=== PATIENT | female | born 1960 | race American Indian/Alaskan Native ===

== ENCOUNTER 2021-02-19 20:11 | Observation (INO) | payer MEDICARE ==
[2021-02-19] MEDS ORDERED: MORPHINE 2 MG/1 ML INJ IV ONE (21:03)
[2021-02-19] MEDS ORDERED: ASPIRIN 81 MG TAB CHEW PO ONE (21:04)
--- NOTE | 2021-02-19 21:07 | Emergency Department Report ---
ED Chest Pain HPI - General Chief Complaint: Chest Pain Stated Complaint: CHEST PAIN Time Seen by Provider: 02/19/21 20:57 Source: patient Mode of arrival: Stretcher Limitations: No Limitations - History of Present Illness Initial Comments: 60-year-old -Romanian female presents to the emergency department via EMS from her [facility] with complaint of midsternal chest pain with radiation down to the upper abdomen that started about 4 PM this afternoon. Currently the pain is 8 out of 10 in intensity. It worsens with certain movements, but there are no known alleviating factors. It is associated with some shortness of breath and nausea without vomiting. She denies any fever, cough, lower extremity swelling. She has a past medical history of hypertension and insulin-dependent diabetes. Her primary care physician is deandra Ryder. She denies any tobacco or illicit drug use. She denies any family history of early cardiac disease or MA. Severity scale (0 -10): 8 - Related Data Allergies Allergy/AdvReac Type Severity Reaction Status Date / Time codeine Allergy Rash Verified 02/19/21 20:17 Heart Score - HEART Score History: Slightly suspicious EKG: Non-specific Age: 45-65 Risk factors: 1-2 risk factors Troponin: < normal limit HEART Score: 3 - EKG Read Time Time EKG Completed: 20:34 EKG Read Time: 20:41 ED Review of Systems ROS: Stated complaint: CHEST PAIN Other details as noted in HPI Comment: All other systems reviewed and negative Constitutional: denies: chills, fever Eyes: denies: eye pain, vision change ENT: denies: ear pain, throat pain Respiratory: shortness of breath. denies: cough Cardiovascular: chest pain. denies: palpitations, edema Gastrointestinal: abdominal pain, nausea. denies: vomiting Genitourinary: denies: dysuria, discharge Musculoskeletal: denies: back pain, arthralgia Skin: denies: rash, lesions Neurological: denies: headache, weakness ED Past Medical Hx - Past Medical History Previous Medical History?: Yes Hx Hypertension: Yes Hx Diabetes: Yes ED Physical Exam - General Limitations: No Limitations - Other Other exam information: GENERAL: The patient is well-developed well-nourished. HENT: Normocephalic. Atraumatic. Patient has moist mucous membranes. EYES: Extraocular motions are intact. NECK: Supple. Trachea is midline. CHEST/LUNGS: Clear to auscultation. No tachypnea or accessory muscle use. HEART/CARDIOVASCULAR: Regular. There is no tachycardia. There is no murmur. Chest pain is not reproducible to palpation of the chest wall. No crepitus or deformity. ABDOMEN: Abdomen is soft, nontender. Patient has normal bowel sounds. Morbidly obese habitus. SKIN: Skin is warm and dry. NEURO: The patient is awake, alert, and oriented. The patient is cooperative. The patient has no focal neurologic deficits. Normal speech. MUSCULOSKELETAL: There is no tenderness or deformity. ED Course Vital Signs 02/19/21 02/19/21 02/19/21 20:17 20:34 21:50 Temperature 98.6 F Pulse Rate 83 73 Respiratory 20 24 18 Rate Blood Pressure 137/68 Blood Pressure 151/65 [Left] O2 Sat by Pulse 96 95 98 Oximetry 02/19/21 02/19/21 02/19/21 22:16 22:30 22:46 Temperature Pulse Rate 72 68 66 Respiratory 16 22 13 Rate Blood Pressure 141/78 146/68 146/68 Blood Pressure [Left] O2 Sat by Pulse 93 95 Oximetry 02/19/21 23:16 Temperature Pulse Rate 67 Respiratory 15 Rate Blood Pressure 155/73 Blood Pressure [Left] O2 Sat by Pulse 97 Oximetry MARITZA score - Maritza Score Age > 65: (0) No Aspirin use within the Past 7 Days: (1) Yes 3 or more CAD Risk Factors: (0) No 2 or more Angina events in past 24 hrs: (1) Yes Known CAD with more than 50% Stenosis: (0) No Elevated Cardiac Markers: (0) No ST Deviation Greater than 0.5mm: (0) No MARITZA Score: 2 ED Medical Decision Making - Lab Data Result diagrams: 02/19/21 21:08 02/19/21 21:08 Lab Results 02/19/21 02/19/21 02/19/21 Range/Units 21:08 21:08 21:08 WBC 8.9 (4.5-11.0) K/mm3 RBC 3.76 (3.65-5.03) M/mm3 Hgb 10.3 (10.1-14.3) gm/dl Hct 33.3 (30.3-42.9) % MCV 88 (79-97) fl MCH 27 L (28-32) pg MCHC 31 (30-34) % RDW 15.3 H (13.2-15.2) % Plt Count 244 (140-440) K/mm3 Lymph % (Auto) 34.8 (13.4-35.0) % [place] % (Auto) 6.2 (0.0-7.3) % Eos % (Auto) 3.3 (0.0-4.3) % Baso % (Auto) 0.6 (0.0-1.8) % Lymph # (Auto) 3.1 (1.2-5.4) K/mm3 [place] # (Auto) 0.6 (0.0-0.8) K/mm3 Eos # (Auto) 0.3 (0.0-0.4) K/mm3 Baso # (Auto) 0.1 (0.0-0.1) K/mm3 Seg Neutrophils % 55.1 (40.0-70.0) % Seg Neutrophils # 4.9 (1.8-7.7) K/mm3 Sodium 142 (137-145) mmol/L Potassium 5.1 H (3.6-5.0) mmol/L Chloride 105.0 (98-107) mmol/L Carbon Dioxide 23 (22-30) mmol/L Anion Gap 19 mmol/L BUN 21 H (7-17) mg/dL Creatinine 1.0 (0.6-1.2) mg/dL Estimated GFR > 60 ml/min BUN/Creatinine Ratio 21 % Glucose 75 (65-100) mg/dL Calcium 8.8 (8.4-10.2) mg/dL Total Bilirubin 0.40 (0.1-1.2) mg/dL AST 16 (5-40) units/L ALT 10 (7-56) units/L Alkaline Phosphatase 114 (35-129) units/L Troponin T < 0.010 (0.00-0.029) ng/mL NT-Pro-B Natriuret Pep 306.7 (0-900) pg/mL Total Protein 7.1 (6.3-8.2) g/dL Albumin 3.6 L (3.9-5) g/dL Albumin/Globulin Ratio 1.0 % Lipase 10 L (13-60) units/L - EKG Data -: EKG Interpreted by Me EKG shows normal: sinus rhythm (PVCs), axis (Left axis deviation), intervals, QRS complexes (Right bundle branch block), ST-T waves Rate: normal - EKG Data When compared to previous EKG there are: previous EKG unavailable Interpretation: other (Sinus rhythm at 75 bpm, left axis deviation, PVCs, right bundle branch block) - Radiology Data Radiology results: image reviewed interpreted by me: Chest x-ray does not show any acute process. There are no pleural effusions, obvious pneumonia and there is no pneumothorax. No widened mediastinum. Abdominal x-ray shows nonspecific nonobstructive bowel gas. No free air. - Medical Decision Making This patient presents to the emergency department with a complaint of midsternal chest pain that radiates down to the epigastrium that has been going on since earlier this afternoon. Heart and lung sounds are normal to auscultation. The patient is morbidly obese. EKG does not have any morphology consistent with ST elevation myocardial infarction. She has a right bundle branch block. Abdominal and chest x-ray did not show any acute process including any free air, widened mediastinum, pneumonia or pleural effusions. The patient's labs have been mostly unremarkable thus far including CBC, metabolic panel and first negative troponin. She has a moderate heart score. Patient had some mild hypoxia of about 88% on room air while laying flat that went up into the mid 90s with 2 L oxygen via nasal cannula. She will be admitted to the hospital for further evaluation and treatment and was accepted for admission by the hospitalist, Dr. Mercedes. Critical Care Time: No Critical care attestation.: If time is entered above; I have spent that time in minutes in the direct care of this critically ill patient, excluding procedure time. ED Disposition Clinical Impression: Acute chest pain, Obesity hypoventilation syndrome Disposition: ADMITTED INPATIENT Is pt being admited?: Yes Condition: Serious Time of Disposition: 23:09
[2021-02-19 21:32] LABS: Basophils # (Auto) 0.1 K/mm3 (0.0-0.1); Basophils % (Auto) 0.6 % (0.0-1.8); Eosinophils # (Auto) 0.3 K/mm3 (0.0-0.4); Eosinophils % (Auto) 3.3 % (0.0-4.3); Hematocrit 33.3 % (30.3-42.9); Hemoglobin 10.3 gm/dl (10.1-14.3); Lymphocytes # (Auto) 3.1 K/mm3 (1.2-5.4); Lymphocytes % (Auto) 34.8 % (13.4-35.0); Mean Corpuscular HGB Conc 31 % (30-34); Mean Corpuscular Volume 88 fl (79-97); Monocytes # (Auto) 0.6 K/mm3 (0.0-0.8); Monocytes % (Auto) 6.2 % (0.0-7.3); Platelet Count 244 K/mm3 (140-440); Red Blood Count 3.76 M/mm3 (3.65-5.03); Red Cell Distribution Width 15.3 % (13.2-15.2)
[2021-02-19 22:18] LABS: Alanine Aminotransferase 10 units/L (7-56); Albumin 3.6 g/dL (3.9-5); BUN/Creatinine Ratio 21; Blood Urea Nitrogen 21 mg/dL (7-17); Calcium 8.8 mg/dL (8.4-10.2); Hemolysis Index 100
--- NOTE | 2021-02-19 22:25 | XRay Report ---
ABDOMEN 2 VIEW(S) INDICATION / CLINICAL INFORMATION: Abd pain. COMPARISON: None available. FINDINGS: TUBES / LINES: None. BOWEL GAS PATTERN: No significant abnormality. FREE AIR / EXTRALUMINAL GAS: None seen. ADDITIONAL FINDINGS: No significant additional findings. IMPRESSION: 1. The exam is limited due to patient body habitus. Accounting for this, no significant abnormality. CHEST 1 VIEW INDICATION: Chest pain. COMPARISON: None. FINDINGS: Support devices: None. Heart: Normal. Lungs/Pleura: No acute pulmonary or pleural findings. IMPRESSION: 1. No acute findings. Signer Name: Jt Finney MD Signed: 02/19/2021 10:21 PM Workstation Name: [id number]
[2021-02-19] MEDS ORDERED: MORPHINE 4 MG/1 ML INJ IV PRN (23:50)
[2021-02-19] MEDS ORDERED: MAGNESIUM HYDROXIDE (MOM) ORAL LIQD UDC PO PRN (23:50)
[2021-02-19] MEDS ORDERED: MORPHINE 2 MG/1 ML INJ IV PRN (23:50)
[2021-02-19] MEDS ORDERED: ONDANSETRON 4 MG/2 ML INJ IV PRN (23:50)
[2021-02-19] MEDS ORDERED: DEXTROSE 50% IN WATER (25GM) 50 ML SYRINGE IV PRN (23:50)
[2021-02-19] MEDS ORDERED: traMADol 50 MG TAB PO PRN (23:50)
[2021-02-19] MEDS ORDERED: ACETAMINOPHEN 325 MG TAB PO PRN ×2 (23:50)
--- NOTE | 2021-02-20 00:02 | History and Physical Report ---
History of Present Illness Date of examination: 02/19/21 Date of admission: 02/19/21 23:09 Chief complaint: Chest Pain History of present illness: 60-year-old -[place] female with known history of hypertension, diabetes mellitus, obesity presenting to the emergency room today complaining of chest pain. Chest pain is said to be midsternal radiating to was seen upper abdomen. Pain was said to have started at about 4 PM this afternoon. On a scale of 10 pa in was about 8/10 in intensity. Pain is made worse on exertion and improves upon resting. She has been having associated shortness of breath. She also indicates that she gets short of breath when she takes a deep breath. Patient denies any fever or chills, no nausea vomiting and no abdominal pain. Work-up in the emergency room today, labs were unremarkable. Chest x-ray was unremarkable. Patient be admitted for chest pain evaluation. Past History Past Medical History: diabetes, hypertension Past Surgical History: No surgical history Social history: no significant social history Family history: no significant family history Medications and Allergies Allergies Allergy/AdvReac Type Severity Reaction Status Date / Time codeine Allergy Rash Verified 02/19/21 20:17 Active Meds: Active Medications Acetaminophen (Acetaminophen 325 Mg Tab) 650 mg PO Q4H PRN PRN Reason: Pain MILD(1-3)/Fever >100.5/ADKINS Acetaminophen (Acetaminophen 325 Mg Tab) 650 mg PO Q6H PRN PRN Reason: Pain, Mild (1-3) Aspirin (Aspirin Ec 325 Mg Tab) 325 mg PO QDAY MARE Dextrose (Dextrose 50% In Water (25gm) 50 Ml Syringe) 50 ml IV Q30MIN PRN; Protocol PRN Reason: Hypoglycemia Dextrose (Dextrose 50% In Water (25gm) 50 Ml Syringe) 50 ml IV Q30MIN PRN; Protocol PRN Reason: Hypoglycemia Insulin Human Lispro (Insulin Lispro 100 Unit/Ml) 0 unit SUB-Q ACHS MARE; Protocol Magnesium Hydroxide (Magnesium Hydroxide (Mom) Oral Liqd Udc) 30 ml PO Q4H PRN PRN Reason: Constipation Morphine Sulfate (Morphine 2 Mg/1 Ml Inj) 2 mg IV Q4H PRN PRN Reason: Pain, Moderate (4-6) Morphine Sulfate (Morphine 4 Mg/1 Ml Inj) 4 mg IV Q4H PRN PRN Reason: Pain , Severe (7-10) Morphine Sulfate (Morphine 4 Mg/1 Ml Inj) 2 mg IV Q5MIN PRN PRN Reason: Chest Pain unrelieved by NTG Ondansetron HCl (Ondansetron 4 Mg/2 Ml Inj) 4 mg IV Q8H PRN PRN Reason: Nausea And Vomiting Sodium Chloride (Sodium Chloride 0.9% 10 Ml Flush Syringe) 10 ml IV BID MARE Sodium Chloride (Sodium Chloride 0.9% 10 Ml Flush Syringe) 10 ml IV PRN PRN PRN Reason: LINE FLUSH Tramadol HCl (Tramadol 50 Mg Tab) 50 mg PO Q6H PRN PRN Reason: Pain, Moderate (4-6) Review of Systems Constitutional: no fever, no chills Ears, nose, mouth and throat: no nasal congestion, no sore throat Cardiovascular: chest pain, no orthopnea, no palpitations Respiratory: shortness of breath, no cough Gastrointestinal: no abdominal pain, no nausea, no vomiting, no diarrhea Genitourinary Female: no flank pain, no dysuria, no hematuria Musculoskeletal: no neck pain, no low back pain Integumentary: no rash, no pruritis Neurological: no headaches, no confusion Psychiatric: no anxiety, no depression Endocrine: no polyphagia, no polydipsia, no polyuria, no nocturia Exam - Constitutional Vitals: Temp Pulse Resp BP Pulse Ox 98.6 F 67 15 155/73 97 02/19/21 20:17 02/19/21 23:16 02/19/21 23:16 02/19/21 23:16 02/19/21 23:16 General appearance: Present: no acute distress, well-nourished, obese - EENT Eyes: Present: PERRL, EOM intact. Absent: scleral icterus ENT: hearing intact, clear oral mucosa, dentition normal - Neck Neck: Present: supple, normal ROM - Respiratory Respiratory effort: normal Respiratory: bilateral: CTA - Cardiovascular Rhythm: regular Heart Sounds: Present: S1 & S2. Absent: systolic murmur, diastolic murmur, rub, click - Extremities Extremities: no ischemia, pulses intact, pulses symmetrical, No edema, normal temperature, normal color, Full ROM, abnormal (Mild bilateral calf tenderness) Peripheral Pulses: within normal limits - Abdominal General gastrointestinal: Present: soft, non-tender, non-distended, normal bowel sounds. Absent: mass - Integumentary Integumentary: Present: clear, warm, dry, normal turgor. Absent: rash - Musculoskeletal Musculoskeletal: strength equal bilaterally - Psychiatric Psychiatric: appropriate mood/affect, intact judgment & insight, memory intact, cooperative - Neurologic Neurologic: CNII-XII intact, no focal deficits, moves all extremities HEART Score - HEART Score History: Moderately suspicious EKG: Non-specific Age: 45-65 Risk factors: 1-2 risk factors Troponin: Troponin T < 0.010 ng/mL (0.00-0.029) 02/19/21 21:08 Troponin: < normal limit HEART Score: 4 Results - Labs CBC & Chem 7: 02/20/21 00:38 02/20/21 00:38 Labs: Abnormal lab results 02/19/21 02/19/21 02/19/21 Range/Units 21:08 21:08 21:08 MCH 27 L (28-32) pg RDW 15.3 H (13.2-15.2) % Potassium 5.1 H (3.6-5.0) mmol/L BUN 21 H (7-17) mg/dL Albumin 3.6 L (3.9-5) g/dL Lipase 10 L (13-60) units/L Assessment and Plan - Patient Problems (1) Acute chest pain Current Visit: Yes Status: Acute Plan to address problem: Patient admitted and placed on telemetry. We will trend cardiac enzymes. Patient placed on daily aspirin, sublingual nitroglycerin and IV morphine as needed for chest pain. Cardiology evaluation requested. (2) Diabetes mellitus Current Visit: Yes Status: Acute Plan to address problem: Patient placed on sliding scale insulin we will monitor Accu-Cheks closely. (3) Hypertension Current Visit: Yes Status: Acute Plan to address problem: We will resume routine home medications and monitor vital signs closely. (4) Obesity hypoventilation syndrome Current Visit: Yes Status: Acute Plan to address problem: Vital signs including oxygen saturation will be closely monitored. We will keep O2 saturation greater or equal to 92%. (5) DVT prophylaxis Current Visit: Yes Status: Acute Plan to address problem: Patient placed on subcutaneous heparin. (6) Full code status Current Visit: Yes Status: Acute Plan to address problem: Patient is full code.
[2021-02-20 00:51] LABS: Basophils # (Auto) 0.1 K/mm3 (0.0-0.1); Basophils % (Auto) 0.6 % (0.0-1.8); Eosinophils # (Auto) 0.2 K/mm3 (0.0-0.4); Eosinophils % (Auto) 2.5 % (0.0-4.3); Hematocrit 32.8 % (30.3-42.9); Hemoglobin 10.3 gm/dl (10.1-14.3); Lymphocytes # (Auto) 2.4 K/mm3 (1.2-5.4); Lymphocytes % (Auto) 29.2 % (13.4-35.0); Mean Corpuscular HGB Conc 31 % (30-34); Mean Corpuscular Volume 86 fl (79-97); Monocytes # (Auto) 0.6 K/mm3 (0.0-0.8); Platelet Count 216 K/mm3 (140-440); Red Blood Count 3.84 M/mm3 (3.65-5.03); Red Cell Distribution Width 15.2 % (13.2-15.2)
[2021-02-20 01:06] LABS: BUN/Creatinine Ratio 21; Blood Urea Nitrogen 21 mg/dL (7-17); Calcium 8.7 mg/dL (8.4-10.2); Hemolysis Index 11
[2021-02-20] MEDS: MORPHINE 4 MG/1 ML INJ IV PRN ×4 (01:06→22:38)
--- NOTE | 2021-02-20 02:46 | Vascular Lab Report ---
DUPLEX DOPPLER LOWER EXTREMITY VEINS, BILATERAL INDICATION / CLINICAL INFORMATION: Terrence. Calf pain R/O DVT. TECHNIQUE: Duplex doppler imaging was performed through the veins of both lower extremities using venous nae luzmaria and other maneuvers. COMPARISON: None available. FINDINGS: RIGHT COMMON FEMORAL VEIN: Negative. RIGHT FEMORAL VEIN: Negative. RIGHT POPLITEAL VEIN: Negative. RIGHT CALF VEINS: Negative. LEFT COMMON FEMORAL VEIN: Negative. LEFT FEMORAL VEIN: Negative. LEFT POPLITEAL VEIN: Negative. LEFT CALF VEINS: Negative. ADDITIONAL FINDINGS: None. IMPRESSION: 1. No sonographic evidence for DVT in either lower extremity. Signer Name: Adan Mckinney MD Signed: 02/20/2021 2:42 AM Workstation Name: [id number]
--- NOTE | 2021-02-20 11:00 | Consultation ---
History of Present Illness Consult date: 02/20/21 Consult reason: chest pain History of present illness: Impression Greater than 24hrs constant SSCP Atypical and typical features HTN Diabetes unknown cholesterol FH CAD Plan Trop negative x 3 CXR negative CV exam benign NTproBNP negative recommend Nuclear SPECT in AM to further evaluate. Past History Past Medical History: diabetes, hypertension Past Surgical History: No surgical history Social history: no significant social history Family history: no significant family history Medications and Allergies Allergies Allergy/AdvReac Type Severity Reaction Status Date / Time codeine Allergy Rash Verified 02/19/21 20:17 Active Meds: Active Medications Acetaminophen (Acetaminophen 325 Mg Tab) 650 mg PO Q4H PRN PRN Reason: Pain MILD(1-3)/Fever >100.5/ADKINS Aspirin (Aspirin Ec 325 Mg Tab) 325 mg PO QDAY MARE Dextrose (Dextrose 50% In Water (25gm) 50 Ml Syringe) 50 ml IV Q30MIN PRN; Protocol PRN Reason: Hypoglycemia Insulin Human Lispro (Insulin Lispro 100 Unit/Ml) 0 unit SUB-Q ACHS MARE; Protocol Magnesium Hydroxide (Magnesium Hydroxide (Mom) Oral Liqd Udc) 30 ml PO Q4H PRN PRN Reason: Constipation Morphine Sulfate (Morphine 2 Mg/1 Ml Inj) 2 mg IV Q4H PRN PRN Reason: Pain, Moderate (4-6) Morphine Sulfate (Morphine 4 Mg/1 Ml Inj) 4 mg IV Q4H PRN PRN Reason: Pain , Severe (7-10) Last Admin: 02/20/21 01:06 Dose: 4 mg Documented by: Morphine Sulfate (Morphine 4 Mg/1 Ml Inj) 2 mg IV Q5MIN PRN PRN Reason: Chest Pain unrelieved by NTG Ondansetron HCl (Ondansetron 4 Mg/2 Ml Inj) 4 mg IV Q8H PRN PRN Reason: Nausea And Vomiting Sodium Chloride (Sodium Chloride 0.9% 10 Ml Flush Syringe) 10 ml IV BID MARE Sodium Chloride (Sodium Chloride 0.9% 10 Ml Flush Syringe) 10 ml IV PRN PRN PRN Reason: LINE FLUSH Tramadol HCl (Tramadol 50 Mg Tab) 50 mg PO Q6H PRN PRN Reason: Pain, Moderate (4-6) Physical Examination Vital Signs Temp Pulse Resp BP Pulse Ox 98.6 F 83 20 151/65 96 02/19/21 20:17 02/19/21 20:17 02/19/21 20:17 02/19/21 20:17 02/19/21 20:17 General appearance: no acute distress HEENT: Positive: PERRL, EOMI Neck: Positive: neck supple Cardiac: Positive: Reg Rate and Rhythm, Regular Rate, S1/S2. Negative: S3 Lungs: Positive: Normal Exam Neuro: Positive: Cranial Nerve 2-12 Intact Abdomen: Positive: Soft Extremities: Present: lower extr. pulses. Absent: edema Results 02/20/21 00:38 02/20/21 00:38 Cardiac Enzymes 02/19/21 Range/Units 21:08 AST 16 (5-40) units/L CBC 02/19/21 02/20/21 Range/Units 21:08 00:38 WBC 8.9 8.4 (4.5-11.0) K/mm3 RBC 3.76 3.84 (3.65-5.03) M/mm3 Hgb 10.3 10.3 (10.1-14.3) gm/dl Hct 33.3 32.8 (30.3-42.9) % Plt Count 244 216 (140-440) K/mm3 Lymph # (Auto) 3.1 2.4 (1.2-5.4) K/mm3 [place] # (Auto) 0.6 0.6 (0.0-0.8) K/mm3 Eos # (Auto) 0.3 0.2 (0.0-0.4) K/mm3 Baso # (Auto) 0.1 0.1 (0.0-0.1) K/mm3 Comprehensive Metabolic Panel 02/19/21 02/20/21 Range/Units 21:08 00:38 Sodium 142 140 (137-145) mmol/L Potassium 5.1 H 4.3 (3.6-5.0) mmol/L Chloride 105.0 105.6 (98-107) mmol/L Carbon Dioxide 23 22 (22-30) mmol/L BUN 21 H 21 H (7-17) mg/dL Creatinine 1.0 1.0 (0.6-1.2) mg/dL Glucose 75 117 H (65-100) mg/dL Calcium 8.8 8.7 (8.4-10.2) mg/dL AST 16 (5-40) units/L ALT 10 (7-56) units/L Alkaline Phosphatase 114 (35-129) units/L Total Protein 7.1 (6.3-8.2) g/dL Albumin 3.6 L (3.9-5) g/dL
[2021-02-20] MEDS: INSULIN LISPRO 100 UNIT/ML SUB-Q SCH ×4 (11:11→22:26)
[2021-02-20] MEDS: ASPIRIN EC 325 MG TAB PO SCH (11:46)
--- NOTE | 2021-02-20 12:05 | Progress Note ---
Assessment and Plan (1) Acute chest pain Current Visit: Yes Status: Acute Plan to address problem: Patient admitted and placed on telemetry. We will trend cardiac enzymes. Patient placed on daily aspirin, sublingual nitroglycerin and IV morphine as needed for chest pain. Cardiology evaluation requested. (2) Diabetes mellitus Current Visit: Yes Status: Acute Plan to address problem: Patient placed on sliding scale insulin we will monitor Accu-Cheks closely. (3) Hypertension Current Visit: Yes Status: Acute Plan to address problem: We will resume routine home medications and monitor vital signs closely. (4) Obesity hypoventilation syndrome Current Visit: Yes Status: Acute Plan to address problem: Vital signs including oxygen saturation will be closely monitored. We will keep O2 saturation greater or equal to 92%. (5) DVT prophylaxis Current Visit: Yes Status: Acute Plan to address problem: Patient placed on subcutaneous heparin. (6) Full code status Current Visit: Yes Status: Acute Plan to address problem: Patient is full code. Disposition: CE/EKG neg. planned for stress test tomorrow Subjective Date of service: 02/20/21 Interval history: Patient seen and examined. Medical records and medication list reviewed. No acute event overnight noted by the RN. Patient c/o intermittent chest pain. Patient is tolerating diet. Discussed plan of care at bedside with patient. Objective - Exam Narrative Exam: GENERAL: well-developed elderly morbidly obese AAF lying on bed appeared to be in no discomfort. HEENT: Normocephalic. Atraumatic. No conjunctival congestion or icterus. Patient has moist mucous membranes. NECK: Supple. Trachea midline. CHEST/LUNGS: Clear to auscultated bilaterally, breathing nonlabored. No wheezes crackles or rhonchi. HEART/CARDIOVASCULAR: Regular in rate and rhythm. S1 and S2 positive. ABDOMEN: Abdomen is soft, nontender. Patient has normal bowel sounds. SKIN: There is no rash. Warm and dry. NEURO: No focal motor deficit. Follows command. MUSCULOSKELETAL: No joint effusion or tenderness. EXTRIMITY: No edema, no cyanosis or clubbing. PSYCH: Cooperative. - Constitutional Vitals: Vital Signs - 12hr 02/20/21 02/20/21 02/20/21 00:16 00:30 00:46 Pulse Rate 73 78 76 Respiratory 23 24 21 Rate Blood Pressure 143/62 177/78 177/78 O2 Sat by Pulse 92 96 94 Oximetry 02/20/21 02/20/21 02/20/21 01:00 01:16 01:30 Pulse Rate 76 72 67 Respiratory 11 L 16 14 Rate Blood Pressure 149/61 149/61 110/64 O2 Sat by Pulse 90 97 97 Oximetry 02/20/21 02/20/21 02/20/21 01:46 02:00 02:16 Pulse Rate 81 77 76 Respiratory 24 16 11 L Rate Blood Pressure 110/64 124/64 124/64 O2 Sat by Pulse 93 98 97 Oximetry 02/20/21 02/20/21 02/20/21 02:30 02:46 03:00 Pulse Rate 78 69 71 Respiratory 21 14 14 Rate Blood Pressure 143/63 143/63 112/57 O2 Sat by Pulse 98 97 97 Oximetry 02/20/21 02/20/21 02/20/21 03:16 03:30 03:46 Pulse Rate 71 78 72 Respiratory 14 20 17 Rate Blood Pressure 112/57 135/52 135/52 O2 Sat by Pulse 96 95 96 Oximetry 02/20/21 02/20/21 02/20/21 04:00 04:16 04:30 Pulse Rate 69 74 69 Respiratory 15 10 L 15 Rate Blood Pressure 118/54 118/54 122/57 O2 Sat by Pulse 97 96 97 Oximetry 02/20/21 02/20/21 02/20/21 04:46 05:00 05:16 Pulse Rate 70 67 66 Respiratory 18 13 14 Rate Blood Pressure 122/57 130/52 130/52 O2 Sat by Pulse 94 95 94 Oximetry 02/20/21 02/20/21 02/20/21 05:30 05:46 06:00 Pulse Rate 68 65 63 Respiratory 15 14 15 Rate Blood Pressure 132/65 132/65 134/62 O2 Sat by Pulse 97 99 99 Oximetry 02/20/21 02/20/21 06:16 06:30 Pulse Rate 68 74 Respiratory 13 15 Rate Blood Pressure 134/62 123/72 O2 Sat by Pulse 98 98 Oximetry - Labs CBC & Chem 7: 02/20/21 00:38 02/20/21 00:38 Labs: Abnormal lab results 02/19/21 02/19/21 02/19/21 Range/Units 21:08 21:08 21:08 MCH 27 L (28-32) pg RDW 15.3 H (13.2-15.2) % D-Dimer (0-234) ng/mlDDU Potassium 5.1 H (3.6-5.0) mmol/L BUN 21 H (7-17) mg/dL Glucose (65-100) mg/dL POC Glucose (70-105) mg/dL Albumin 3.6 L (3.9-5) g/dL Lipase 10 L (13-60) units/L 02/20/21 02/20/21 02/20/21 Range/Units 00:38 00:38 00:38 MCH 27 L (28-32) pg RDW (13.2-15.2) % D-Dimer 247.24 H (0-234) ng/mlDDU Potassium (3.6-5.0) mmol/L BUN 21 H (7-17) mg/dL Glucose 117 H (65-100) mg/dL POC Glucose (70-105) mg/dL Albumin (3.9-5) g/dL Lipase (13-60) units/L 02/20/21 Range/Units 10:59 MCH (28-32) pg RDW (13.2-15.2) % D-Dimer (0-234) ng/mlDDU Potassium (3.6-5.0) mmol/L BUN (7-17) mg/dL Glucose (65-100) mg/dL POC Glucose 143 H (70-105) mg/dL Albumin (3.9-5) g/dL Lipase (13-60) units/L HEART Score - HEART Score EKG: Non-specific Age: 45-65 Risk factors: 1-2 risk factors Troponin: Troponin T < 0.010 ng/mL (0.00-0.029) 02/20/21 05:53 Troponin: < normal limit
[2021-02-21] MEDS: diphenhydrAMINE 50 MG/ML VIAL IV PRN (01:37)
[2021-02-21 06:41] LABS: Chol/HDL Ratio 2.04 %
[2021-02-21] MEDS: INSULIN LISPRO 100 UNIT/ML SUB-Q SCH ×4 (09:19→22:00)
[2021-02-21] MEDS: REGADENOSON 0.4 MG/5 ML INJ IV ONE ×2 (09:19→11:31)
[2021-02-21] MEDS: ASPIRIN EC 325 MG TAB PO SCH (09:19)
--- NOTE | 2021-02-21 13:24 | Nuclear Medicine Report ---
APPROVED REPORT Exam: Nuclear Stress Test Indication: Chest pain Patient Location: [facility]LE[facility] Ht: 5 ft 3 in Wt: 325 lbs BSA: 2.38 m2 HR: 80 bpmBP: 161/58 mmHgBMI: 57.56 Rhythm: NSR, RBBB Stress Test Details Stress Test: Pharmacologic stress testing performed using 0.4 mg of regadenoson per 5 mL given IV over 10 seconds. Reason for pharmacologic stress test: physical limitation. HR Resting HR: 80 bpm Max HR Achieved: 101 bpm Max Heart Rate (APMHR): 160 bpm Target HR (85% APMHR): 136 bpm % of APMHR: 63 Recovery HR: 93 bpm HR response to stress: Normal HR response to stress BP Resting BP: 156/58 mmHg Max BP: 167/74 mmHg Recovery BP: 164/62 mmHg BP response to stress: Abnormal hypertensive response to stress. ECG Resting ECG: Sinus Rhythm, RBBB Stress ECG: Sinus Tachycardia, RBBB ST Change: None Arrhythmia: Occasional VPC's Recovery ECG: Sinus Rhythm, RBBB Recovery ST Change: None Recovery Arrhythmia: Occasional VPC Clinical Reason for Termination: Completed protocol Stress Symptoms: Fatigue Stress ECG Conclusion No chest pain no ST changes of ischemia with pharmacologic stress. Myocardial perfusion images are pending. NM EXAM: Myocardial Perfusion REST/STRESS Imaging Protocol: Rest Tc-99m/Stress Tc-99m 1 day Resting Data Rest SPECT myocardial perfusion imaging was performed in supine position 45 minutes following the intravenous injection of 10 mCi of Tc-99m Myoview. Time of rest injection: 0711 Date: 02/21/2021 Pharmacologic Stress Pharmacologic stress test was performed by injecting Regadenoson 0.4 mg IV push followed by the intravenous injection of 28 mCi of Tc-99m Myoview. Time of stress injection: 1100 Date: 02/21/2021 Study Data TID = 0.89. Perfusion Wall Motion There is normal left ventricular systolic function with ejection fraction 52%. Nuclear Conclusion ECG Findings: negative for ischemia Clinical Findings: negative for ischemia Nuclear Findings: equivocal Left Ventricular Function: normal Risk Study: low Suboptimal study with evidence of motion artifact. The perfusion study demonstrates a small fixed apical defect suggestive of an old apical myocardial infarction. There is no significant reversible ischemia. There is normal left ventricular systolic function with ejection fraction 52%. Clinical correlation is recommended. Conclusion No chest pain no ST changes of ischemia with pharmacologic stress. Myocardial perfusion images are pending.
--- NOTE | 2021-02-21 13:34 | Event Note ---
Date: 02/21/21 60-year-old woman admitted over the weekend with chest pain. ECG was a sinus rhythm with right bundle branch block. Serial troponin levels were normal. Today, she was ordered for a Lexiscan thallium stress test. Lexiscan thallium stress test completed, shows a small fixed apical defect, with no reversible ischemia. Study suboptimal with evidence of motion artifact. Left ventricular ejection fraction normal at 52%. Okay for cardiac discharge, follow-up with cardiology in 5 to 7 days.
[2021-02-21] MEDS: MORPHINE 4 MG/1 ML INJ IV PRN ×3 (13:38→23:38)
[2021-02-22] MEDS: diphenhydrAMINE 50 MG/ML VIAL IV PRN ×2 (02:13→11:16)
[2021-02-22 04:33] VITALS: BP 154/63
[2021-02-22 06:39] LABS: Basophils % (Auto) 0.5 % (0.0-1.8); Eosinophils # (Auto) 0.2 K/mm3 (0.0-0.4); Eosinophils % (Auto) 3.2 % (0.0-4.3); Hematocrit 31.8 % (30.3-42.9); Lymphocytes # (Auto) 1.9 K/mm3 (1.2-5.4); Lymphocytes % (Auto) 26.3 % (13.4-35.0); Mean Corpuscular HGB Conc 32 % (30-34); Mean Corpuscular Volume 87 fl (79-97); Monocytes # (Auto) 0.5 K/mm3 (0.0-0.8); Monocytes % (Auto) 6.6 % (0.0-7.3); Platelet Count 206 K/mm3 (140-440); Red Blood Count 3.66 M/mm3 (3.65-5.03); Red Cell Distribution Width 15.1 % (13.2-15.2)
[2021-02-22 07:05] LABS: BUN/Creatinine Ratio 18; Blood Urea Nitrogen 16 mg/dL (7-17); Calcium 8.6 mg/dL (8.4-10.2); Hemolysis Index 6
[2021-02-22] MEDS: MORPHINE 4 MG/1 ML INJ IV PRN ×2 (08:15→11:17)
--- NOTE | 2021-02-22 10:17 | Electrocardiograph Report ---
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
[2021-02-22] MEDS: INSULIN LISPRO 100 UNIT/ML SUB-Q SCH ×2 (11:15→13:27)
[2021-02-22] MEDS: ASPIRIN EC 325 MG TAB PO SCH (11:16)
--- NOTE | 2021-02-22 11:20 | Progress Note ---
Assessment and Plan Chest pain, atypical MPI: no reversible ischemia. Echo reports a normal LVEF 50-55%. Hypertension Diabetes Morbid obesity No further cardiac workup indicated. Stable cardiac berg for discharge with outpatient follow up in 5-7 days. Subjective Date of service: 02/22/21 Interval history: Patient is resting in bed and appears comfortable. Objective Vital Signs Temp Pulse Resp BP Pulse Ox 02/22/21 11:14 97 02/22/21 03:57 97.9 F 88 16 154/63 95 02/22/21 00:00 97 02/21/21 23:43 98.5 F 81 18 136/85 93 02/21/21 19:57 98.4 F 88 16 174/68 97 02/21/21 16:12 98.2 F 88 18 179/75 96 02/21/21 12:44 84 02/21/21 11:35 173/73 02/21/21 11:33 167/73 02/21/21 11:31 164/71 02/21/21 11:29 166/74 02/21/21 11:25 156/62 - Physical Examination General: No Apparent Distress, Other (obese) HEENT: Positive: PERRL, EOMI Neck: Positive: neck supple Cardiac: Positive: Reg Rate and Rhythm Lungs: Positive: Decreased Breath Sounds Neuro: Positive: Grossly Intact Extremities: Absent: edema - Labs and Meds CBC 02/22/21 Range/Units 04:41 WBC 7.2 (4.5-11.0) K/mm3 RBC 3.66 (3.65-5.03) M/mm3 Hgb 10.0 L (10.1-14.3) gm/dl Hct 31.8 (30.3-42.9) % Plt Count 206 (140-440) K/mm3 Lymph # (Auto) 1.9 (1.2-5.4) K/mm3 [place] # (Auto) 0.5 (0.0-0.8) K/mm3 Eos # (Auto) 0.2 (0.0-0.4) K/mm3 Baso # (Auto) 0.0 (0.0-0.1) K/mm3 Comprehensive Metabolic Panel 02/22/21 Range/Units 04:41 Sodium 139 (137-145) mmol/L Potassium 4.8 (3.6-5.0) mmol/L Chloride 103.1 (98-107) mmol/L Carbon Dioxide 27 (22-30) mmol/L BUN 16 (7-17) mg/dL Creatinine 0.9 (0.6-1.2) mg/dL Glucose 262 H (65-100) mg/dL Calcium 8.6 (8.4-10.2) mg/dL
--- NOTE | 2021-02-22 14:19 | Electrocardiograph Report ---
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
--- NOTE | 2021-02-22 16:29 | Discharge Summary ---
Providers - Providers Date of Admission: 02/19/21 23:09 Date of discharge: 02/21/21 Attending physician: JORGE LUIS FRANCIS MD 02/19/21 Consult to Cardiac Rehabilitation [CONS] Routine Reason For Exam: Phase I 02/19/21 23:50 Consult to Cardiology [CONS] Routine Consulting Provider: BRYAN RODRIGEZ Reason For Exam: Chest Pain Primary care physician: SALEEM MENDOZA Hospitalization Reason for admission: Acute chest pain Condition: Stable Pertinent studies: Reviewed. Procedures: Stress test. Hospital course: Patient is a 60-year-old female past medical history of hypertension, type 2 diabetes mellitus, obesity hypoventilation syndrome, and morbid obesity who presented with typical midsternal chest pain with an intensity of 8/10. The patient was found to have negative troponins x3. Cardiology was consulted and the patient underwent cardiac stress test that was found to be negative for reversible ischemic injury. The patient was medically cleared for discharge. Disposition: 01 HOME / SELF CARE / HOMELESS Final Discharge Diagnosis (Prints w/discharge instructions): Acute chest pain, diabetes mellitus type 2, hypertension, obesity hypoventilation syndrome, and morbid obesity Time spent for discharge: 45 min Core Measure Documentation - Palliative Care Palliative Care/ Comfort Measures: Not Applicable - Core Measures Any of the following diagnoses?: history only Exam - Constitutional Vitals: Temp Pulse Resp BP Pulse Ox 97.9 F 88 16 154/63 97 02/22/21 03:57 02/22/21 03:57 02/22/21 03:57 02/22/21 03:57 02/22/21 11:14 General appearance: Present: no acute distress, well-nourished, obese - EENT Eyes: Present: PERRL, EOM intact ENT: hearing intact, clear oral mucosa - Neck Neck: Present: supple, normal ROM - Respiratory Respiratory effort: normal Respiratory: bilateral: CTA - Cardiovascular Rhythm: regular Heart Sounds: Present: S1 & S2 - Extremities Extremities: no ischemia, pulses intact, pulses symmetrical, normal temperature, normal color Peripheral Pulses: within normal limits - Abdominal General gastrointestinal: Present: soft, non-tender, non-distended, normal bowel sounds Female genitourinary: Present: deferred - Rectal Rectal Exam: deferred - Integumentary Integumentary: Present: clear, warm, dry - Psychiatric Psychiatric: other (Aggressive and screaming) - Neurologic Neurologic: CNII-XII intact - Allied Health Allied health notes reviewed: nursing Plan Care Plan Goals: Patient safe to discharge home. Assessment: Patient presented with chest pain and underwent a nuclear stress test that was negative for reversible ischemic cardiac changes. The patient will follow up with Dr. Rodrigez in clinic in 7 days. The patient is safe for discharge. Follow up with: BRYAN RODRIGEZ MD [Staff Physician] - 7 Days SALEEM MENDOZA MD [Primary Care Provider] - 3-5 Days
== END 2021-02-22 16:35 | disposition home or self-care (01) ==
LOC: ED 20:11 → 4A 23:09 → INTOOBSV 02-21 15:10 → OBSVTOIN 02-21 15:10 → UNDODISOB 02-22 11:42
PROVIDERS: ADMIT Internal Medicine Geriatric Medicine; ATTEND Student in an Organized Health Care Education/Training Program
DX: R07.89 Other chest pain (principal); I10 Essential (primary) hypertension; E11.9 Type 2 diabetes mellitus without complications; E66.2 Morbid (severe) obesity with alveolar hypoventilation; E78.00 Pure hypercholesterolemia, unspecified; Z68.44 Body mass index [BMI] 60.0-69.9, adult; Z79.82 Long term (current) use of aspirin; Z79.4 Long term (current) use of insulin; Z79.899 Other long term (current) drug therapy; Z98.890 Other specified postprocedural states
CPT/HCPCS: 36415; 71045; 74019; 78452; 80048; 80053; 80061; 82962; 83690; 83880; 84484; 85025; 85379; 87641; 93005; 93017; 93306; 93970; 96374; 96375; 96376; 99285; A9502; G0378; J1200; J2270; J2785; Q9967; J1815